=== PATIENT | male | born 1995 | race Caucasian/White ===

== ENCOUNTER 2017-01-29 22:07 | Emergency (ER) | payer OTHER ==
[~2017-01-29] VITALS: Ht 188 cm; Wt 87.0 kg
[~2017-01-29 22:07] MED LIST: ARIP1TAB8 PO; DPKSR/250 PO; DPKSR/500 PO; FLUO20CA36 PO
[2017-01-29 22:10] VITALS: TEMP 37; Ht 188 cm; Wt 87.0 kg
[2017-01-29] MEDS ORDERED: MoRPHine SULFATE 4 MG/ML 1 ML CARP\\VIAL IV STA (22:20)
--- NOTE | 2017-01-29 22:29 | EMERGENCY ROOM VISIT NOTE ---
History Report prepared by Mary Beth: Maik Valdes Under the Supervision of: Dr. Casey Arriaga M.D. First contact with patient: 22:20 Chief Complaint: TESTICULAR PAIN Stated Complaint: TESTICULAR PAIN History of Present Illness The patient is a 21 year old white male with a past medical history of rectal bleeding and anxiety who presents to the ED with a cc of persistent right testicle pain beginning prior to arrival this evening. Negative nausea, vomiting , fevers, chills, urinary symptoms, recent trauma. He says that the pain came on suddenly without provocation, and he rates the pain as an 8 out of 10 in severity. The patient has never had testicular problems in the past. 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 Review of Systems See HPI for pertinent positives and negatives. A total of ten systems were reviewed and were otherwise negative. Past Medical & Surgical Medical Problems: (1) Acute anxiety (2) Anxiety (3) Asperger's disorder (4) Asthma (5) Depression (6) Mood disorder (7) Mood disorder (8) Outbursts of anger (9) Stomach problems (10) Suicidal ideation (11) Suicidal ideation Family History FHx: heart disease Hypertension Seizures Social History Smoking Status: Former Smoker Alcohol Use: occasionally Marital Status: single Housing Status: lives with roommate Occupation Status: [employer] student Current/Historical Medications Scheduled Acetaminophen (Tylenol), 1,000 MG PO PRN UD Aripiprazole (Abilify), 10 MG PO DAILY Divalproex Sodium (Depakote Etended-Release), 1,000 MG PO QAM Fluoxetine (Prozac), 60 MG PO QAM Loratadine (Claritin), 10 MG PO DAILY Scheduled PRN Ranitidine Hcl (Zantac), 75 MG PO DAILY PRN for HEART BURN Allergies Coded Allergies: Isotretinoin (Verified Adverse Reaction, Intermediate, SUICIDAL IDEATIONS , 09/10/15) PER ALEXY MOHAMUD Physical Exam Vital Signs Date Time Temp Pulse Resp B/P (MAP) Pulse Ox O2 Delivery O2 Flow Rate FiO2 01/30/17 00:02 89 18 136/83 99 Room Air 01/29/17 22:58 95 01/29/17 22:10 37.0 100 20 153/95 98 Room Air Physical Exam GENERAL: Awake, alert, well-appearing, NAD HENT: Normocephalic, atraumatic. EYES: Normal conjunctiva. Sclera non-icteric. NECK: Supple. No nuchal rigidity. FROM. RESPIRATORY: CTAB, no rhonchi, wheezing, crackles CARDIAC: RRR, no MRG ABDOMEN: Soft, NTND, BS+ : Mild soreness right testicle, no penile pain, no scrotal swelling, no testicular swelling, no masses. MSK: No chest wall TTP, no LE edema NEURO: GCS 15, CN 2-12 intact, moves all 4s on command SKIN: No rash or jaundice noted. Medical Decision & Procedures ER Provider Diagnostic Interpretation: US: Radiology results as stated below per my review and radiologist interpretation US SCROTAL: Testes are unremarkable. No torsion or masses. No sonographic features of infection. Right epididymal head cyst. Left epididymis is unremarkable. No varicocele. No hydrocele. Radiologist: Eladio Leon MD Laboratory Results 01/29/17 22:45 Red Blood Count 5.26, Mean Corpuscular Volume 84.4, Mean Corpuscular Hemoglobin 27.0, Mean Corpuscular Hemoglobin Concent 32.0, Mean Platelet Volume 10.6, Neutrophils (%) (Auto) 43.6, Lymphocytes (%) (Auto) 43.8, Monocytes (%) (Auto) 11.0, Eosinophils (%) (Auto) 1.2, Basophils (%) (Auto) 0.4, Neutrophils # (Auto ) 2.94, Lymphocytes # (Auto) 2.95, Monocytes # (Auto) 0.74, Eosinophils # (Auto ) 0.08, Basophils # (Auto) 0.03 01/29/17 22:45 Test 01/29/17 22:45 01/29/17 23:00 White Blood Count 6.74 K/uL (4.8-10.8) Red Blood Count 5.26 M/uL (4.7-6.1) Hemoglobin 14.2 g/dL (14.0-18.0) Hematocrit 44.4 % (42-52) Mean Corpuscular Volume 84.4 fL (80-100) Mean Corpuscular Hemoglobin 27.0 pg (25-34) Mean Corpuscular Hemoglobin Concent 32.0 g/dl (32-36) Platelet Count 251 K/uL (130-400) Mean Platelet Volume 10.6 fL (7.4-10.4) Neutrophils (%) (Auto) 43.6 % Lymphocytes (%) (Auto) 43.8 % Monocytes (%) (Auto) 11.0 % Eosinophils (%) (Auto) 1.2 % Basophils (%) (Auto) 0.4 % Neutrophils # (Auto) 2.94 K/uL (1.4-6.5) Lymphocytes # (Auto) 2.95 K/uL (1.2-3.4) Monocytes # (Auto) 0.74 K/uL (0.11-0.59) Eosinophils # (Auto) 0.08 K/uL (0-0.5) Basophils # (Auto) 0.03 K/uL (0-0.2) RDW Standard Deviation 39.7 fL (36.4-46.3) RDW Coefficient of Variation 13.0 % (11.5-14.5) Immature Granulocyte % (Auto) 0.0 % Immature Granulocyte # (Auto) 0.00 K/uL (0.00-0.02) Anion Gap 4.0 mmol/L (3-11) Est Creatinine Clear Calc Drug Dose 175.0 ml/min Estimated GFR () 149.3 Estimated GFR (Non- 128.8 BUN/Creatinine Ratio 7.6 (10-20) Calcium Level 8.9 mg/dl (8.5-10.1) Urine Color DK YELLOW Urine Appearance CLEAR (CLEAR) Urine pH 6.5 (4.5-7.5) Urine Specific [place] 1.028 (1.000-1.030) Urine Protein NEG (NEG) Urine Glucose (UA) NEG (NEG) Urine Ketones 1+ (NEG) Urine Occult Blood NEG (NEG) Urine Nitrite NEG (NEG) Urine Bilirubin NEG (NEG) Urine Urobilinogen NEG (NEG) Urine Leukocyte Esterase NEG (NEG) Urine WBC (Auto) 1-5 /hpf (0-5) Urine RBC (Auto) 0-4 /hpf (0-4) Urine Hyaline Casts (Auto) 5-10 /lpf (0-5) Urine Epithelial Cells (Auto) 5-10 /lpf (0-5) Urine Bacteria (Auto) NEG (NEG) Laboratory results reviewed by me Medications Administered Medications (Trade) Dose Ordered Sig/Ashwini Route Start Time Stop Time Status Last Admin Dose Admin Morphine Sulfate (MoRPHine SULFATE INJ) 4 mg NOW STAT IV 01/29/17 22:20 01/29/17 22:23 DC 01/29/17 22:57 4 MG ED Course 2224: The patient was evaluated in room B7. A complete history and physical exam was performed. 0017: I reevaluated the patient and he is resting. Discussed results and discharge instructions: he verbalized understanding and agreement. The patient is ready for discharge. Medical Decision The patient is a 21 year old white male with a past medical history of rectal bleeding and anxiety who presents to the ED with a cc of persistent right testicle pain beginning prior to arrival this evening. Negative nausea, vomiting , fevers, chills, urinary symptoms, recent trauma. Differential diagnosis: Etiologies such as torsion, mass, infection, hernia, hydrocele, epididymitis, trauma, intra-abdominal process, as well as others were entertained. Patient was seen and evaluated the bedside. Patient had been complaining of some mild right-sided testicular pain that was acute in onset. Patient denied any nausea vomiting or fevers. Patient denied any recent sexual intercourse unprotected sexual encounters. Patient denied any penile pain or discharge. On exam patient had a soft abdomen and only had some very mild right testicular pain. He had no posterior testicular tenderness palpation. Patient had no swelling. Patient was circumcised. Patient did have blood work that was completed along with a testicular ultrasound. Patient's testicular ultrasound was normal. Patient urinalysis was negative for infection. Patient kidney function normal. Patient was feeling well and in written did not require any medication while here. Furthermore because he didn't have posterior testicular pain consistent with epididymitis he was not treated as such. Patient also admitted to not having any sexual encounters since the Obama administration. Patient was told that if he has persistent symptoms he should return here but given the lack of other findings in addition to lack of nausea and vomiting less likely to be torsion. Patient was given strict follow-up, discharge, and return precautions. All questions were answered. Patient was deemed suitable for outpatient follow-up at this time. Patient agreed with the plan of care and was safely discharged home. Medication Reconcilliation Current Medication List: was personally reviewed by me Blood Pressure Screening Patient's blood pressure: Elevated blood pressure Blood pressure disposition: Elevated BP felt to be situational Impression Primary Impression: Testicular pain, right Scribe Attestation The scribe's documentation has been prepared under my direction and personally reviewed by me in its entirety. I confirm that the note above accurately reflects all work, treatment, procedures, and medical decision making performed by me. Departure Information Dispostion Home / Self-Care Referrals Artemio Bruce M.D. (PCP) Patient Instructions ED Testicular Pain DEMARIO, [facility] Additional Instructions Please return to the emergency department if you have worsening or recurrent symptoms not amenable to at-home treatment. Please call for a follow-up appointment with her primary care physician. Please take your medications as prescribed. If you have other concerns and/or complaints please feel free to also call your primary care physician's office or return the ED for further evaluation, management, and treatment. You may take 600 mg Ibuprofen every 6 hours as needed for pain with food for no more than 2 consecutive days. You may take tylenol 1000 mg every 6 hours as needed for pain. You may take motrin and tylenol separately or at the same time. Take your medications as prescribed. If taking an antibiotic consider taking a probiotic and/or eating yogurt, but at the least, please take with food as it can cause upset stomach. If culture results are not available at discharge, if they are positive for concern of infection, you will be informed of the results as soon as they are available. If you were seen between 11pm and 7AM all radiology reads will be re-read by our in house staff. If any major discrepancies are discovered, you will be notified. You have been examined and treated today on an emergency basis only. This is not a substitute for, or an effort to provide, complete comprehensive medical care. It is impossible to recognize and treat all injuries or illnesses in a single emergency department visit. It is therefore important that you follow up closely with [facility], your PCP, and/or your specialist(s). Call as soon as possible for an appointment. Thank you for your time and consideration. I look forward to speaking with you again soon. Please don't hesitate to call us if you have any questions.
[2017-01-29] MEDS ORDERED: FLUO20CA35 PO (22:54)
[2017-01-29] MEDS ORDERED: ACET-1256 PO (22:54)
[2017-01-29] MEDS ORDERED: CLR10 PO (22:54)
[2017-01-29] MEDS ORDERED: RANITAB33 PO (22:54)
[2017-01-29 22:56] LABS: BASO % 0.4 %; BASO ABS # 0.03 K/uL (0-0.2); COMPLETE YES; EOS % 1.2 %; HEMATOCRIT 44.4 % (42-52); LYMPH % 43.8 %; LYMPH ABS # 2.95 K/uL (1.2-3.4); MEAN CELL VOLUME 84.4 fL (80-100); MEAN PLATELET VOLUME 10.6 fL (7.4-10.4); NEUT % 43.6 %; PLATELET COUNT 251 K/uL (130-400); RED BLOOD COUNT 5.26 M/uL (4.7-6.1); WHITE BLOOD COUNT 6.74 K/uL (4.8-10.8)
[2017-01-29 23:12] LABS: BUN/CREATININE RATIO 7.6 (10-20); CALCIUM 8.9 mg/dl (8.5-10.1); CREATININE 0.77 mg/dl (0.60-1.40); POTASSIUM 3.5 mmol/L (3.5-5.1)
[2017-01-29 23:18] LABS: URINE APPEARANCE CLEAR (CLEAR); URINE COLOR DK YELLOW; URINE NITRITE NEG (NEG); URINE PH 6.5 (4.5-7.5); URINE SPECIFIC GRAVITY 1.028 (1.000-1.030); UROBILINOGEN NEG (NEG); ZZUR CULT IF INDIC CLEAN CATCH NO
[2017-01-29 23:49] LABS: MANUAL MICROSCOPIC REQUIRED? NO; REVIEW REQ? NO; URINE BILIRUBIN NEG (NEG)
[2017-01-30 00:02] VITALS: BP 136/83; PULSE 89; O2SAT 99
--- NOTE | 2017-01-30 07:00 | DIAGNOSTIC IMAGING REPORT ---
ULTRASOUND TESTES AND SCROTUM CLINICAL HISTORY: Right testicular pain. COMPARISON STUDY: No priors. TECHNIQUE: Real-time, grayscale, and color Doppler sonography of the testes and scrotum is performed. Images are reviewed in the transverse and longitudinal planes. FINDINGS: The testes are normal in size and homogeneous in echotexture. The right testis measures 4.4 x 2.8 x 2.7 cm and the left testis measures 4.7 x 2.7 x 3.1 cm. No intratesticular mass is seen. Testicular blood flow is normal and symmetric. Normal Doppler waveforms are identified in both testes. The epididymal heads are normal in appearance. The right epididymal head measures 1.2 cm in length and the left epididymal head measures 1.3 cm in length. A 3 mm epididymal head cyst is noted on the right. No varicocele or hydrocele is seen. IMPRESSION: Unremarkable sonographic assessment of the testes and scrotum. Electronically signed by: Satnam Brush M.D. 01/30/2017 6:59 AM Dictated Date/Time: 01/30/2017 6:57 AM
[2017-02-03] MEDS ORDERED: CIPR-255 PO (04:41)
== END 2017-01-30 00:18 | disposition home or self-care (01) ==
LOC: C.EDB 22:08
DX: N50.811 Right testicular pain (principal); F41.9 Anxiety disorder, unspecified; J45.909 Unspecified asthma, uncomplicated; F32.9 Major depressive disorder, single episode, unspecified; F84.5 Asperger's syndrome; Z82.49 Family history of ischemic heart disease and other diseases of the circulatory system; Z87.891 Personal history of nicotine dependence; Z79.899 Other long term (current) drug therapy

== ENCOUNTER 2017-05-08 02:22 | Emergency (ER) | payer OTHER ==
[~2017-05-08] VITALS: Ht 188 cm; Wt 96.6 kg
[~2017-05-08 02:22] MED LIST changes: +ACET-1256 PO; +CIPR-255 PO; +CLR10 PO; -DPKSR/250 PO; +FLUO20CA35 PO; -FLUO20CA36 PO; +RANITAB33 PO
[2017-05-08 02:24] VITALS: TEMP 36.7; Ht 188 cm; Wt 96.6 kg
[2017-05-08] MEDS ORDERED: IBUP-1050 PO (02:37)
[2017-05-08] MEDS ORDERED: NAPR1TAB9 PO (02:37)
--- NOTE | 2017-05-08 03:56 | EMERGENCY ROOM VISIT NOTE ---
History First contact with patient: 02:29 Chief Complaint: TESTICULAR PAIN Stated Complaint: TESTICULAR PAIN Nursing Triage Summary: testicular pain increasing in intesity x 4days History of Present Illness The patient is a 22 year old male who presents to the Emergency Room with complaints of testicular pain. The patient reports that he has had intermittent pain in his right testicle for the past 4 days. He states the pain became severe approximately one hour prior to arrival. He states the pain was a 10/10, prompting him to call an ambulance. He states the pain is improved now and he reports it is a dull, heavy feeling in both testicles. He feels he has had "low-volume" of urination but denies any dysuria or increased frequency. The patient was seen here several months ago multiple times for similar symptoms and states that he was treated for epididymitis despite his tests all being negative. He was told to follow-up with urology but was unable to due to transportation issues. He states he has not had any sexual intercourse for over one year. He denies any fevers/chills or penile discharge. He denies any abdominal pain or back pain. Review of Systems A complete 10 point review of systems was reviewed with the patient with pertinent positives and negatives as per history of present illness. All else were negative. Past Medical/Surgical History Medical Problems: (1) Acute anxiety (2) Anxiety (3) Asperger's disorder (4) Asthma (5) Depression (6) Mood disorder (7) Mood disorder (8) Outbursts of anger (9) Stomach problems (10) Suicidal ideation (11) Suicidal ideation Family History FHx: heart disease Hypertension Seizures Social History Smoking Status: Never Smoker Alcohol Use: occasionally Marital Status: single Housing Status: lives with roommate Occupation Status: [employer] student Current/Historical Medications Scheduled Loratadine (Claritin), 10 MG PO DAILY Scheduled PRN Acetaminophen (Tylenol), 1,000 MG PO Q4 PRN for Pain Ibuprofen (Advil), 400-600 MG PO Q6H PRN for Pain Naproxen (Aleve), 220 MG PO Q12 PRN for Pain Ranitidine Hcl (Zantac), 75 MG PO DAILY PRN for HEART BURN Physical Exam Vital Signs Date Time Temp Pulse Resp B/P (MAP) Pulse Ox O2 Delivery O2 Flow Rate FiO2 05/08/17 05:22 81 18 119/59 98 Room Air 05/08/17 02:24 36.7 98 18 154/87 99 Room Air Physical Exam VITALS: Vitals are noted on the nurse's note and reviewed by myself. Vital signs stable. GENERAL: This is a 22-year-old male, in no acute distress, nondiaphoretic, well- developed well-nourished. HEART: Regular rate and rhythm without murmurs gallops or rubs. LUNGS: Clear to auscultation bilaterally without wheezes, rales or rhonchi. ABDOMEN: Soft, nontender. : External genitalia unremarkable. There is no erythema or edema of the scrotum. No palpable masses. No tenderness to palpation of bilateral testicles. NEURO: Patient was alert and oriented to person place and time. Medical Decision & Procedures ER Provider Diagnostic Interpretation: (TESTICULAR) SCROTUM-CONT CLINICAL HISTORY: 22 years-old Male presenting with testicular pain, b/l. TECHNIQUE: Real-time grayscale and color and spectral Doppler ultrasound imaging of the scrotum was performed. COMPARISON: 02/07/2017. FINDINGS: Right testis: Normal echogenicity and echotexture. Testis measures 4.6 x 2.6 x 2.7 cm. Normal color Doppler flow and arterial and venous waveforms in the testicular parenchyma. 3 mm epididymal head cyst or spermatocele. No hydrocele. No varicocele. Left testis: Normal echogenicity and echotexture. Testis measures 4.7 x 2.6 x 2.8 cm. Normal color Doppler flow and arterial and venous waveforms in the testicular parenchyma. Epididymal head normal. Trace hydrocele. No varicocele. Symmetric perfusion of the testes. IMPRESSION: No evidence of testicular torsion. Essentially normal testes. Laboratory Results Test 05/08/17 02:33 Urine Color DK YELLOW Urine Appearance CLEAR (CLEAR) Urine pH 5.5 (4.5-7.5) Urine Specific [place] 1.031 (1.000-1.030) Urine Protein NEG (NEG) Urine Glucose (UA) NEG (NEG) Urine Ketones TRACE (NEG) Urine Occult Blood NEG (NEG) Urine Nitrite NEG (NEG) Urine Bilirubin NEG (NEG) Urine Urobilinogen NEG (NEG) Urine Leukocyte Esterase NEG (NEG) Medications Administered Medications (Trade) Dose Ordered Sig/Ashwini Route Start Time Stop Time Status Last Admin Dose Admin Ranitidine HCl (zANTac TAB) 150 mg ONE STAT PO 05/08/17 06:32 05/08/17 06:34 DC 05/08/17 06:38 150 MG Al Hydroxide/Mg Hydroxide (Maalox Susp) 30 ml STK-MED ONCE .ROUTE 05/08/17 06:36 05/08/17 06:37 DC 05/08/17 06:39 30 ML Lidocaine HCl (Viscous Lidocaine 2% Soln) 20 ml STK-MED ONCE .ROUTE 05/08/17 06:36 05/08/17 06:37 DC 05/08/17 06:39 20 ML Lorazepam (Ativan Tab) 0.5 mg NOW STAT SL 05/08/17 08:11 05/08/17 08:12 DC 05/08/17 08:22 0.5 MG Medical Decision Differential diagnosis includes testicular torsion, epididymitis, orchitis, chlamydia, gonorrhea, among others. The patient is a 22-year-old who presents today complaining of testicular discomfort. Ultrasound was negative. Urinalysis was not suggestive of infection. Patient has absolutely no concern for STD. Patient has been here multiple times with similar symptoms and negative workups. I feel there may be a component of psychiatric issues contributing to the discomfort. When the patient was about to be discharged, they became very upset and anxious, requesting to speak with someone from mental health. Mental health evaluation was obtained. This revealed that the patient is transgender and I do feel this likely plays a large part in their genital discomfort. Arrangements will be made for the patient to follow-up with their block and case maker as an outpatient. They were comfortable with this plan of care. Medication Reconcilliation Current Medication List: was personally reviewed by me Blood Pressure Screening Patient's blood pressure: Normal blood pressure Impression Primary Impression: Testicular discomfort Additional Impression: Mood disorder Departure Information Dispostion Home / Self-Care Condition GOOD Referrals Artemio Bruce M.D. (PCP) Srinivasan Ayala M.D. Patient Instructions My [facility] Additional Instructions Follow-up with urology for further evaluation of your ongoing testicular pain. For pain control, you can use the following [id number] medicines (if >12 yo): - Regular strength (325mg/tab) Tylenol (acetaminophen) 2 tabs every 4-6 hours as needed. Do not exceed 12 tablets in a 24 hour period. Avoid taking more than 4 grams (4000 mg) of Tylenol per day. This includes any other sources of acetaminophen you may take on a regular basis. - Regular strength (200 mg/tab) Advil (ibuprofen) 1-2 tabs every 4-6 hours as needed. Do not exceed a dose of 3200 mg per day. Return for fevers, penile discharge, or any other new/concerning symptoms. Follow-up with mental health providers as discussed. Problem Qualifiers
[2017-05-08 05:22] VITALS: BP 119/59; PULSE 81; O2SAT 98
[2017-05-08] MEDS ORDERED: GI COCKTAIL PO STA (06:32)
[2017-05-08] MEDS ORDERED: RANITIDINE HCL 150 MG TAB PO STA (06:32)
[2017-05-08] MEDS ORDERED: LIDOCAINE HCL 2% VISC SOLN 20 ML UDC ONE (06:36)
[2017-05-08] MEDS ORDERED: ALUMINUM/MAGNESIUM SUSP 30 ML UDC ONE (06:36)
--- NOTE | 2017-05-08 06:41 | DIAGNOSTIC IMAGING REPORT ---
(TESTICULAR) SCROTUM-CONT CLINICAL HISTORY: 22 years-old Male presenting with testicular pain, b/l. TECHNIQUE: Real-time grayscale and color and spectral Doppler ultrasound imaging of the scrotum was performed. COMPARISON: 02/07/2017. FINDINGS: Right testis: Normal echogenicity and echotexture. Testis measures 4.6 x 2.6 x 2.7 cm. Normal color Doppler flow and arterial and venous waveforms in the testicular parenchyma. 3 mm epididymal head cyst or spermatocele. No hydrocele. No varicocele. Left testis: Normal echogenicity and echotexture. Testis measures 4.7 x 2.6 x 2.8 cm. Normal color Doppler flow and arterial and venous waveforms in the testicular parenchyma. Epididymal head normal. Trace hydrocele. No varicocele. Symmetric perfusion of the testes. IMPRESSION: No evidence of testicular torsion. Essentially normal testes. Electronically signed by: Artemio Lund M.D. 05/08/2017 6:40 AM Dictated Date/Time: 05/08/2017 6:39 AM
[2017-05-08] MEDS ORDERED: LORAZEPAM 0.5 MG TAB SL STA (08:11)
== END 2017-05-08 08:20 | disposition home or self-care (01) ==
LOC: C.EDB 02:22 → EDBD 02:22 → C.EDB 08:20
DX: N50.811 Right testicular pain (principal); F39 Unspecified mood [affective] disorder; F41.9 Anxiety disorder, unspecified; F84.5 Asperger's syndrome; J45.909 Unspecified asthma, uncomplicated; Z82.49 Family history of ischemic heart disease and other diseases of the circulatory system; Z82.0 Family history of epilepsy and other diseases of the nervous system

== ENCOUNTER 2017-07-04 03:38 | Emergency (ER) | payer OTHER ==
[~2017-07-04] VITALS: Ht 188 cm; Wt 87.0 kg
[~2017-07-04 03:38] MED LIST changes: -ARIP1TAB8 PO; -CIPR-255 PO; -DPKSR/500 PO; -FLUO20CA35 PO; +IBUP-1050 PO; +NAPR1TAB9 PO
[2017-07-04 03:40] VITALS: TEMP 36.6; Ht 188 cm; Wt 87.0 kg
[2017-07-04 04:31] LABS: HEMATOCRIT 42.4 % (42-52); HEMOGLOBIN 14.9 g/dL (14.0-18.0); MEAN CELL VOLUME 83.8 fL (80-100); MEAN CORPUSCULAR HEMOGLOBIN 29.4 pg (25-34); MEAN CORPUSCULAR HGB CONC 35.1 g/dl (32-36); MEAN PLATELET VOLUME 10.6 fL (7.4-10.4); PLATELET COUNT 246 K/uL (130-400); RED CELL DISTRIBUTION WIDTH CV 13.1 % (11.5-14.5); WHITE BLOOD COUNT 7.44 K/uL (4.8-10.8)
[2017-07-04 04:54] LABS: ALBUMIN 3.8 gm/dl (3.4-5.0); ALT/SGPT 24 U/L (12-78); AST/SGOT 16 U/L (15-37); BLOOD UREA NITROGEN 8 mg/dl (7-18); CARBON DIOXIDE 27 mmol/L (21-32); CREATININE 0.87 mg/dl (0.60-1.40); GLUCOSE 89 mg/dl (70-99); POTASSIUM 3.5 mmol/L (3.5-5.1); SODIUM 140 mmol/L (136-145)
[2017-07-04 05:05] LABS: ALKALINE PHOSPHATASE 83 U/L (45-117); TOTAL PROTEIN 8.3 gm/dl (6.4-8.2)
--- NOTE | 2017-07-04 06:43 | EMERGENCY ROOM VISIT NOTE ---
History Report prepared by Mary Beth: Doron Fletcher Under the Supervision of: Dr. Jeaneth Locke D.O. First contact with patient: 04:10 Chief Complaint: MENTAL HEALTH EVALUATION Stated Complaint: [facility] History of Present Illness The patient is a 22 year old male who identifies as female and prefers the name Penny who presents to the Emergency Room with complaints of episodic general suicidal ideations [employer]STA [employer]ESS [employer]. The patient identifies as female and prefers the pronoun Her/She. She states that she wrote a letter expressing her feelings that also contained suicidal thoughts. She reports sharing this letter with her friend Sherita, whom she reports was a previous girlfriend. She notes that she took a step back from the letter and realized that she felt better after sharing it with her friend and went to bed. She notes the police showed up at her home at 0300 this morning to inform her that her friend had contacted [facility] without her knowledge. She states that she is uncomfortable with being in a hospital setting as she does not find it helpful. She reports a history of thoughts of self-harm with a plan, though denies any current thoughts of self- harm. She notes that she does not speak to a counselor due to lack of transportation. The patient does report headache with pressure behind her eyes. She states that she has eye strain, though denies any changes to vision. She notes a history of sinus issues in the past, though has not been seen by her PCP for these symptoms. She has tried Aleve, though no relief. She denies any daily medication use. She denies any tobacco, alcohol, or recreational drug use. She is currently employed and not in school. 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 A total of 10 systems reviewed and were otherwise negative. Past Medical & Surgical Medical Problems: (1) Acute anxiety (2) Anxiety (3) Asperger's disorder (4) Asthma (5) Depression (6) Mood disorder (7) Mood disorder (8) Outbursts of anger (9) Stomach problems (10) Suicidal ideation (11) Suicidal ideation Family History FHx: heart disease Hypertension Seizures Social History Smoking Status: Never Smoker Alcohol Use: occasionally Marital Status: single Housing Status: lives with roommate Occupation Status: [employer] student Current/Historical Medications No Active Prescriptions or Reported Meds Allergies Coded Allergies: Doxycycline (Verified Allergy, Severe, agitation, 05/08/17) Isotretinoin (Verified Adverse Reaction, Intermediate, SUICIDAL IDEATIONS , 02/07/17) PER [facility] Physical Exam Vital Signs Date Time Temp Pulse Resp B/P (MAP) Pulse Ox O2 Delivery O2 Flow Rate FiO2 07/04/17 03:40 36.6 118 18 140/90 100 Room Air Physical Exam GENERAL: alert, well appearing, well nourished, no distress, non-toxic EYE EXAM: normal conjunctiva, PERRL and EOM's grossly intact OROPHARYNX: no exudate, no erythema, lips, buccal mucosa, and tongue normal and mucous membranes are moist NECK: supple, no nuchal rigidity, no adenopathy, non-tender LUNGS: Clear to auscultation. Normal chest wall mechanics HEART: no murmurs, S1 normal and S2 normal ABDOMEN: abdomen soft, non-tender, normo-active bowel sounds, no masses, no rebound or guarding. BACK: Back is symmetrical on inspection and there is no deformity, no midline tenderness, no CVA tenderness. SKIN: no rashes and no bruising UPPER EXTREMITIES: upper extremities are grossly normal. LOWER EXTREMITIES: No pitting edema. NEURO EXAM: Normal sensorium, cranial nerves II-XII grossly intact, normal speech, no gross weakness of arms, no gross weakness of legs. PSYCH: Mildly anxious. Depression. Admits to SI earlier, but denies any currently. No current plan. Medical Decision & Procedures Laboratory Results 07/04/17 04:16 Red Blood Count 5.06, Mean Corpuscular Volume 83.8, Mean Corpuscular Hemoglobin 29.4, Mean Corpuscular Hemoglobin Concent 35.1, Mean Platelet Volume 10.6 07/04/17 04:16 Test 07/04/17 04:10 07/04/17 04:16 Urine Color DK YELLOW Urine Appearance CLOUDY (CLEAR) Urine pH 6.0 (4.5-7.5) Urine Specific [place] 1.028 (1.000-1.030) Urine Protein NEG (NEG) Urine Glucose (UA) NEG (NEG) Urine Ketones NEG (NEG) Urine Occult Blood NEG (NEG) Urine Nitrite NEG (NEG) Urine Bilirubin NEG (NEG) Urine Urobilinogen NEG (NEG) Urine Leukocyte Esterase NEG (NEG) Urine WBC (Auto) 1-5 /hpf (0-5) Urine RBC (Auto) 0-4 /hpf (0-4) Urine Hyaline Casts (Auto) 1-5 /lpf (0-5) Urine Epithelial Cells (Auto) 5-10 /lpf (0-5) Urine Bacteria (Auto) NEG (NEG) Urine Opiates Screen NEG (NEG) Urine Methadone, Qualitative NEG (NEG) Urine Barbiturates NEG (NEG) Urine Phencyclidine (PCP) Level NEG (NEG) Ur Amphetamine/Methamphetamine NEG (NEG) MDMA (Ecstasy) Screen NEG (NEG) Urine Benzodiazepines Screen NEG (NEG) Urine Cocaine Metabolite NEG (NEG) Urine Marijuana (THC) NEG (NEG) White Blood Count 7.44 K/uL (4.8-10.8) Red Blood Count 5.06 M/uL (4.7-6.1) Hemoglobin 14.9 g/dL (14.0-18.0) Hematocrit 42.4 % (42-52) Mean Corpuscular Volume 83.8 fL (80-100) Mean Corpuscular Hemoglobin 29.4 pg (25-34) Mean Corpuscular Hemoglobin Concent 35.1 g/dl (32-36) Platelet Count 246 K/uL (130-400) Mean Platelet Volume 10.6 fL (7.4-10.4) RDW Standard Deviation 39.0 fL (36.4-46.3) RDW Coefficient of Variation 13.1 % (11.5-14.5) Neutrophils % (Manual) 40.7 % Lymphocytes % (Manual) 28.3 % Variant Lymphocytes % (manual) 20.4 % Monocytes % (Manual) 8.8 % Eosinophils % (Manual) 0.9 % Basophils % (Manual) 0.9 % (0-2) Neutrophils # (Manual) 3.03 K/uL (1.4-6.5) Total Absolute Neutrophils 3.03 K/uL (1.4-6.5) Lymphocytes # (Manual) 2.11 K/uL (1.2-3.4) Absolute Variant Lymphocytes 1.52 K/uL Total Absolute Lymphocytes 3.62 K/uL (1.2-3.4) Monocytes # (Manual) 0.65 K/uL (0.11-0.59) Eosinophils # (Manual) 0.07 K/uL (0-0.5) Basophils # (Manual) 0.07 K/uL (0-0.2) Red Blood Cell Morphology Unremarkable Anion Gap 5.0 mmol/L (3-11) Estimated GFR () 141.0 Estimated GFR (Non- 121.7 BUN/Creatinine Ratio 9.5 (10-20) Calcium Level 9.0 mg/dl (8.5-10.1) Total Bilirubin 0.4 mg/dl (0.2-1) Direct Bilirubin 0.2 mg/dl (0-0.2) Aspartate Amino Transf (AST/SGOT) 16 U/L (15-37) Alanine Aminotransferase (ALT/SGPT) 24 U/L (12-78) Alkaline Phosphatase 83 U/L (45-117) Total Protein 8.3 gm/dl (6.4-8.2) Albumin 3.8 gm/dl (3.4-5.0) Thyroid Stimulating Hormone (TSH) 0.871 uIu/ml (0.300-4.500) Ethyl Alcohol mg/dL < 3.0 mg/dl (0-3) Laboratory results per my review. ED Course 0401: The patient was evaluated in room A5. A complete history and physical exam was performed. 0706: Patient seen and evaluated by psychiatric porter sample case. 302 as originally petitioned, upheld. Patient refused to sign voluntary form. 0706: The patient is awaiting bed placement. Medical Decision Prior records/ancillary studies reviewed. Triage Nursing notes reviewed. The patient's history was concerning for possible psychiatric disturbance. Differential diagnosis: Etiologies such as mood disorder, infection, hypoglycemia, electrolyte abnormalities, cardiac sources, intracerebral event, toxicologic, neurologic, as well as others were entertained. Patient well-appearing cooperative hair not denying any suicidal ideation. Patient was brought in as a 302, and the email sent to his friend was very concerning as it was very descriptive and detailed the patient had a definite plan. Given patient's prior history, and no current psychiatric providers, feel patient is at high risk of danger to himself. I do not feel he is an imminent danger to others. Patient refused to sign voluntary admission form, and so 302 was upheld. Medication Reconcilliation Current Medication List: was personally reviewed by me Blood Pressure Screening Patient's blood pressure: Elevated blood pressure Blood pressure disposition: Elevated BP felt to be situational Impression Primary Impression: Mood disorder Additional Impression: Suicidal ideation Scribe Attestation The scribe's documentation has been prepared under my direction and personally reviewed by me in its entirety. I confirm that the note above accurately reflects all work, treatment, procedures, and medical decision making performed by me. Departure Information Prescriptions No Active Prescriptions or Reported Meds Referrals Artemio Bruce M.D. (PCP) Patient Instructions My [facility] Problem Qualifiers
--- NOTE | 2017-07-04 13:40 | EMERGENCY ROOM VISIT NOTE ---
ED Visit Note Received patient in signout. History and physical verified by me. patient will be transferred to the [facility]. Problem List Medical Problems: (1) Acute anxiety Status: Chronic (2) Anxiety Status: Chronic (3) Asperger's disorder Status: Chronic (4) Asthma Status: Chronic (5) Depression Status: Chronic (6) Mood disorder Status: Chronic (7) Mood disorder Status: Chronic (8) Outbursts of anger Status: Resolved (9) Stomach problems Status: Chronic (10) Suicidal ideation Status: Resolved (11) Suicidal ideation Status: Resolved Current/Historical Medications No Active Prescriptions or Reported Meds Allergies Coded Allergies: Doxycycline (Verified Allergy, Severe, agitation, 05/08/17) Isotretinoin (Verified Adverse Reaction, Intermediate, SUICIDAL IDEATIONS , 02/07/17) PER [facility] Vital Signs Date Time Temp Pulse Resp B/P (MAP) Pulse Ox O2 Delivery O2 Flow Rate FiO2 07/04/17 03:40 36.6 118 18 140/90 100 Room Air Laboratory Results 07/04/17 04:16 Red Blood Count 5.06, Mean Corpuscular Volume 83.8, Mean Corpuscular Hemoglobin 29.4, Mean Corpuscular Hemoglobin Concent 35.1, Mean Platelet Volume 10.6 07/04/17 04:16 Test 07/04/17 04:10 07/04/17 04:16 Urine Color DK YELLOW Urine Appearance CLOUDY (CLEAR) Urine pH 6.0 (4.5-7.5) Urine Specific [place] 1.028 (1.000-1.030) Urine Protein NEG (NEG) Urine Glucose (UA) NEG (NEG) Urine Ketones NEG (NEG) Urine Occult Blood NEG (NEG) Urine Nitrite NEG (NEG) Urine Bilirubin NEG (NEG) Urine Urobilinogen NEG (NEG) Urine Leukocyte Esterase NEG (NEG) Urine WBC (Auto) 1-5 /hpf (0-5) Urine RBC (Auto) 0-4 /hpf (0-4) Urine Hyaline Casts (Auto) 1-5 /lpf (0-5) Urine Epithelial Cells (Auto) 5-10 /lpf (0-5) Urine Bacteria (Auto) NEG (NEG) Urine Opiates Screen NEG (NEG) Urine Methadone, Qualitative NEG (NEG) Urine Barbiturates NEG (NEG) Urine Phencyclidine (PCP) Level NEG (NEG) Ur Amphetamine/Methamphetamine NEG (NEG) MDMA (Ecstasy) Screen NEG (NEG) Urine Benzodiazepines Screen NEG (NEG) Urine Cocaine Metabolite NEG (NEG) Urine Marijuana (THC) NEG (NEG) White Blood Count 7.44 K/uL (4.8-10.8) Red Blood Count 5.06 M/uL (4.7-6.1) Hemoglobin 14.9 g/dL (14.0-18.0) Hematocrit 42.4 % (42-52) Mean Corpuscular Volume 83.8 fL (80-100) Mean Corpuscular Hemoglobin 29.4 pg (25-34) Mean Corpuscular Hemoglobin Concent 35.1 g/dl (32-36) Platelet Count 246 K/uL (130-400) Mean Platelet Volume 10.6 fL (7.4-10.4) RDW Standard Deviation 39.0 fL (36.4-46.3) RDW Coefficient of Variation 13.1 % (11.5-14.5) Neutrophils % (Manual) 40.7 % Lymphocytes % (Manual) 28.3 % Variant Lymphocytes % (manual) 20.4 % Monocytes % (Manual) 8.8 % Eosinophils % (Manual) 0.9 % Basophils % (Manual) 0.9 % (0-2) Neutrophils # (Manual) 3.03 K/uL (1.4-6.5) Total Absolute Neutrophils 3.03 K/uL (1.4-6.5) Lymphocytes # (Manual) 2.11 K/uL (1.2-3.4) Absolute Variant Lymphocytes 1.52 K/uL Total Absolute Lymphocytes 3.62 K/uL (1.2-3.4) Monocytes # (Manual) 0.65 K/uL (0.11-0.59) Eosinophils # (Manual) 0.07 K/uL (0-0.5) Basophils # (Manual) 0.07 K/uL (0-0.2) Red Blood Cell Morphology Unremarkable Anion Gap 5.0 mmol/L (3-11) Estimated GFR () 141.0 Estimated GFR (Non- 121.7 BUN/Creatinine Ratio 9.5 (10-20) Calcium Level 9.0 mg/dl (8.5-10.1) Total Bilirubin 0.4 mg/dl (0.2-1) Direct Bilirubin 0.2 mg/dl (0-0.2) Aspartate Amino Transf (AST/SGOT) 16 U/L (15-37) Alanine Aminotransferase (ALT/SGPT) 24 U/L (12-78) Alkaline Phosphatase 83 U/L (45-117) Total Protein 8.3 gm/dl (6.4-8.2) Albumin 3.8 gm/dl (3.4-5.0) Thyroid Stimulating Hormone (TSH) 0.871 uIu/ml (0.300-4.500) Ethyl Alcohol mg/dL < 3.0 mg/dl (0-3) Departure Information Impression Primary Impression: Mood disorder Additional Impression: Suicidal ideation Prescriptions No Active Prescriptions or Reported Meds Referrals Artemio Bruce M.D. (PCP) Patient Instructions [facility] Problem Qualifiers
[2017-07-04 17:54] VITALS: BP 124/55; PULSE 84; O2SAT 98
== END 2017-07-04 17:50 | disposition short-term general hospital (02) ==
LOC: C.EDA 03:38
DX: F39 Unspecified mood [affective] disorder (principal); R45.851 Suicidal ideations; F41.9 Anxiety disorder, unspecified; J45.909 Unspecified asthma, uncomplicated; F32.9 Major depressive disorder, single episode, unspecified; Z82.49 Family history of ischemic heart disease and other diseases of the circulatory system; Z82.0 Family history of epilepsy and other diseases of the nervous system; Z88.8 Allergy status to other drugs, medicaments and biological substances

== ENCOUNTER 2017-11-21 06:38 | Emergency (ER) | payer OTHER ==
[~2017-11-21] VITALS: Ht 188 cm; Wt 90.4 kg
[2017-11-21 06:41] VITALS: TEMP 36.7; Ht 188 cm; Wt 90.4 kg
[2017-11-21] MEDS ORDERED: OPTIRAY 320 IV PRN (07:15)
[2017-11-21] MEDS ORDERED: ESTRD2 PO (07:34)
[2017-11-21] MEDS ORDERED: KFL500HP PO (07:34)
[2017-11-21] MEDS ORDERED: DPKSR/500 PO (07:34)
[2017-11-21] MEDS ORDERED: SPRN100 PO (07:34)
[2017-11-21] MEDS ORDERED: CTP1 PO (07:34)
[2017-11-21] MEDS ORDERED: ZLF/100 PO (07:34)
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
[2017-11-21 07:43] LABS: BASO % 0.8 %; BASO ABS # 0.05 K/uL (0-0.2); EOS % 0.8 %; EOS ABS # 0.05 K/uL (0-0.5); HEMATOCRIT 40.6 % (42-52); HEMOGLOBIN 14.3 g/dL (14.0-18.0); IG# 0.01 K/uL (0.00-0.02); LYMPH % 41.9 %; LYMPH ABS # 2.76 K/uL (1.2-3.4); MEAN CELL VOLUME 90.2 fL (80-100); MEAN CORPUSCULAR HEMOGLOBIN 31.8 pg (25-34); MEAN CORPUSCULAR HGB CONC 35.2 g/dl (32-36); MEAN PLATELET VOLUME 11.7 fL (7.4-10.4); MONO % 15.3 %; MONO ABS # 1.01 K/uL (0.11-0.59); PLATELET COUNT 188 K/uL (130-400); RED CELL DISTRIBUTION WIDTH CV 11.9 % (11.5-14.5); RED CELL DISTRIBUTION WIDTH SD 39.2 fL (36.4-46.3); WHITE BLOOD COUNT 6.58 K/uL (4.8-10.8)
[2017-11-21 07:52] LABS: INR 1.1 (0.9-1.1)
[2017-11-21 08:11] LABS: ALBUMIN 3.6 gm/dl (3.4-5.0); ALKALINE PHOSPHATASE 61 U/L (45-117); ALT/SGPT 15 U/L (12-78); AST/SGOT 12 U/L (15-37); BLOOD UREA NITROGEN 12 mg/dl (7-18); CALCIUM 8.7 mg/dl (8.5-10.1); CARBON DIOXIDE 26 mmol/L (21-32); CREATININE 0.76 mg/dl (0.60-1.40); GLUCOSE 91 mg/dl (70-99); POTASSIUM 3.4 mmol/L (3.5-5.1); SODIUM 140 mmol/L (136-145); TOTAL PROTEIN 7.7 gm/dl (6.4-8.2)
[2017-11-21] MEDS ORDERED: POTASSIUM CHLORIDE 10 MEQ TABCR PO STA (08:13)
--- NOTE | 2017-11-21 08:49 | DIAGNOSTIC IMAGING REPORT ---
CT ANGIOGRAM OF THE BRAIN COMBO CLINICAL HISTORY: Headache. Visual changes. COMPARISON STUDY: No priors. TECHNIQUE: Unenhanced axial CT scan of the brain is performed. Subsequently, following the IV administration of 117 cc of Optiray 320, CT angiogram of the brain was performed from the skull base to the vertex. Images are reviewed in the axial, sagittal, and coronal planes. 3-D MIPS images are created and assessed. IV contrast was administered without complication. A dose lowering technique was utilized adhering to the principles of ALARA. CT DOSE: 853.72 mGy.cm FINDINGS: Brain parenchyma: The brain parenchyma is normal in appearance. There is no hemorrhage, mass effect, or evidence of acute territorial ischemia by CT criteria. There is no evidence of enhancing mass lesion on the angiogram phase images. No extra-axial fluid collection is seen. Nolasco-white matter differentiation is preserved. Ventricles, sulci, and cisterns: Normal in configuration. CT angiogram of the brain: The internal carotid arteries are widely patent, as are the anterior and middle cerebral arteries. The vertebrobasilar system and posterior cerebral arteries are widely patent. The vertebral arteries are codominant. There is no aneurysm, high-grade stenosis, or focal vessel cutoff identified throughout the intracranial circulation. Dural sinuses: Clear as visualized. Orbits: The bony orbits are intact. The orbital contents are normal as visualized. Sinuses and mastoids: The visualized paranasal sinuses are clear. The mastoid air cells are well pneumatized. Calvarium: Unremarkable. IMPRESSION: 1. No acute intracranial abnormality. 2. Unremarkable CT angiogram of the brain. Electronically signed by: Satnam Brush M.D. 11/21/2017 8:48 AM Dictated Date/Time: 11/21/2017 8:31 AM
[2017-11-21 10:50] VITALS: BP 109/67; PULSE 70; O2SAT 98
== END 2017-11-21 11:05 | disposition home or self-care (01) ==
LOC: EDBD 06:38 → C.EDA 06:40
DX: R51 Headache (principal); R20.2 Paresthesia of skin; F41.9 Anxiety disorder, unspecified; E87.6 Hypokalemia; F32.9 Major depressive disorder, single episode, unspecified; Z86.59 Personal history of other mental and behavioral disorders; Z87.891 Personal history of nicotine dependence